=== PATIENT | female | born 1940 | race Caucasian/White ===

== ENCOUNTER 2019-02-19 15:57 | Emergency (ER) | payer MEDICARE ==
[2019-02-19] MEDS ORDERED: MECLIZINE 25 MG TABLET PO ONE (17:43)
--- NOTE | 2019-02-19 17:49 | Emergency Department Record ---
History of Present Illness - General Chief Complaint: Hypertension Stated Complaint: BLOOD PRESSURE HIGH Time Seen by Provider: 02/19/19 17:38 Source: Patient Mode of Arrival: Wheelchair - History of Present Illness Initial Comments: spinning sensation when she sits up or moves her head side to side and no headache and she has had that happened before. Primary Dr is Dr Nuria glynn. moving all four extremities appropriately and she nystagmus when she moves her head right of left and she said it was much worse this morning when she first got up and this has been going on for 3 days PMH CKD Onset/Timin -: Days(s) Timing: Unsure Description: Lightheadedness, "Room spinning" History of Same: Yes (has not lasted this long) History of Trauma: No - Yeni Coma Scale Eye Response: (4) Open spontaneously Motor Response: (6) Obeys commands Verbal Response: (5) Oriented Yeni Total: 15 - Related Data Home Medications Medication Instructions Recorded Confirmed Last Taken Amlodipine Besylate [Norvasc] 10 mg PO DAILY 02/19/19 02/19/19 02/19/19 Ergocalciferol (Vitamin D2) 50,000 units PO WEEKLY 02/19/19 02/19/19 02/19/19 [Vitamin D2] Nebivolol HCl [Bystolic] 20 mg PO DAILY 02/19/19 02/19/19 02/19/19 Previous Rx's Medication Instructions Recorded Meclizine HCl [Antivert] 25 mg PO Q8H #30 tablet 02/19/19 Allergies Allergy/AdvReac Type Severity Reaction Status Date / Time amoxicillin [From Prevpac] Allergy SWELLING Verified 02/19/19 16:45 OF THE TONGUE clarithromycin [From Prevpac] Allergy SWELLING Verified 02/19/19 16:45 OF THE TONGUE doxycycline Allergy SWELLING Verified 02/19/19 16:45 OF THE TONGUE lansoprazole [From Prevpac] Allergy SWELLING Verified 02/19/19 16:45 OF THE TONGUE Sulfa (Sulfonamide Allergy HIVES Verified 02/19/19 16:43 Antibiotics) Travel Screening - Travel/Exposure Within Last 30 Days Have you traveled within the last 30 days?: No - Travel/Exposure Within Last Year Have you traveled outside the [place] in the last year?: No - Additonal Travel Details Have you been exposed to anyone with a communicable illness?: No - Travel Symptoms Symptom Screening: None Review of Systems Reviewed: No additional complaints except as noted below Constitutional: Reports: As per HPI. Denies: Chills, Fever, Malaise, Night sweats, Weakness, Weight change Eyes: Reports: As per HPI. Denies: Eye discharge, Eye pain, Photophobia, Vision change ENT: Reports: As per HPI. Denies: Congestion, Dental pain, Ear pain, Epistaxis, Hearing loss, Throat pain Respiratory: Reports: As per HPI. Denies: Cough, Dyspnea, Hemoptysis, Stridor, Wheezes Cardiovascular: Reports: As per HPI. Denies: Arrhythmia, Chest pain, Dyspnea on exertion, Edema, Murmurs, Orthopnea, Palpitations, Paroxysmal nocturnal dyspnea, Rheumatic Fever, Syncope Endocrine: Reports: As per HPI. Denies: Fatigue, Heat or cold intolerance, Polydipsia, Polyuria Gastrointestinal: Reports: As per HPI. Denies: Abdominal pain, Constipation, Diarrhea, Hematemesis, Hematochezia, Melena, Nausea, Vomiting Genitourinary: Reports: As per HPI. Denies: Abnormal menses, Discharge, Dyspareunia, Dysuria, Frequency, Hematuria, Incontinence, Retention, Urgency Musculoskeletal: Reports: As per HPI. Denies: Arthralgia, Back pain, Gout, Joint swelling, Myalgia, Neck pain Skin: Reports: As per HPI. Denies: Bruising, Change in color, Change in hair/nails, Lesions, Pruritus, Rash Neurological: Reports: As per HPI, Vertigo. Denies: Abnormal gait, Confusion, Headache, Numbness, Paresthesias, Seizure, Tingling, Tremors, Weakness Psychiatric: Reports: As per HPI. Denies: Anxiety, Auditory hallucinations, Depression, Homicidal thoughts, Suicidal thoughts, Visual hallucinations Hematological/Lymphatic: Reports: As per HPI. Denies: Anemia, Blood Clots, Easy bleeding, Easy bruising, Swollen glands Past Medical History - SOCIAL HISTORY Smoking Status: Current every day smoker Alcohol Use: None Drug Use: None - RESPIRATORY Hx Respiratory Disorders: No - CARDIOVASCULAR Hx Cardio Disorders: Yes Hx Hypertension: Yes - NEURO Hx Neuro Disorders: No - GI Hx GI Disorders: No - Hx Genitourinary Disorders: Yes Hx Renal Disease: Yes - ENDOCRINE Hx Endocrine Disorders: No - MUSCULOSKELETAL Hx Musculoskeletal Disorders: No - PSYCH Hx Psych Problems: No - HEMATOLOGY/ONCOLOGY Hx Hematology/Oncology Disorders: No Family Medical History Any Significant Family History?: No Physical Exam - General General Appearance: Alert, Oriented x3, Cooperative, No acute distress - Head Head exam: Normal inspection - Eye Eye exam: Normal appearance, PERRL Pupils: Normal accommodation - ENT ENT exam: Normal exam, Mucous membranes moist, Normal external ear exam, Normal orophraynx, TM's normal bilaterally Ear exam: Normal external inspection. negative: External canal tenderness Nasal Exam: Normal inspection. negative: Discharge, Sinus tenderness Mouth exam: Normal external inspection, Tongue normal Teeth exam: Normal inspection. negative: Dental caries Throat exam: Normal inspection. negative: Tonsillar erythema, Tonsillar exudate - Neck Neck exam: Normal inspection, Full ROM. negative: Tenderness - Respiratory Respiratory exam: Normal lung sounds bilaterally. negative: Respiratory distress - Cardiovascular Cardiovascular Exam: Regular rate, Normal rhythm, Normal heart sounds - GI/Abdominal GI/Abdominal exam: Soft, Normal bowel sounds. negative: Tenderness - Rectal Rectal exam: Deferred - exam: Deferred - Extremities Extremities exam: Normal inspection, Full ROM, Normal capillary refill. negative: Tenderness - Back Back exam: Reports: Normal inspection, Full ROM. Denies: Muscle spasm, Rash noted, Tenderness - Neurological Neurological exam: Alert, Normal gait, Oriented X3, Reflexes normal, Other (nystagmus with motion of head) - Psychiatric Psychiatric exam: Normal affect, Normal mood - Skin Skin exam: Dry, Intact, Normal color, Warm Course Vital Signs 02/19/19 16:47 Temperature 97.8 F Pulse Rate 52 L Respiratory 18 Rate Blood Pressure 208/81 Pulse Ox 97 - Reevaluation(s) Reevaluation #1: patient is feeling better and would like to go home 02/19/19 18:57 Medical Decision Making - Data Complexity MDM Data: X-Ray Ordered and/or Reviewed (CT head negative except chronic changes), EKG Ordered and/or Reviewed (NSR no acute changes) - Lab Data Result diagrams: 02/19/19 18:45 02/19/19 18:10 Disposition Clinical Impression: BPV (benign positional vertigo) Qualifiers: Laterality: unspecified laterality Qualified Code(s): H81.10 - Benign paroxysmal vertigo, unspecified ear Disposition: Home, Self-Care Condition: (1) Good Instructions: Benign Paroxysmal Positional Vertigo (ED) Additional Instructions: follow up with Dr Pérez next week use antivert three times a day Prescriptions: Meclizine HCl [Antivert] 25 mg PO Q8H #30 tablet Forms: Patient Portal Access Time of Disposition: 19:00 Quality - Quality Measures Quality Measures: N/A - Blood Pressure Screening Does Patient Have Any of the Following: No, Active Dx of HTN Blood Pressure Classification: Pre-Hypertensive BP Reading Systolic Measurement: 208 Diastolic Measurement: 81 Screening for High Blood Pressure: Patient Exclusion, Hx of HTN [G9744]
[2019-02-19 18:43] LABS: BLOOD UREA NITROGEN 14 mg/dL (8-23); CREATININE 0.7 mg/dL (0.5-0.9); EST GLOMERULAR FILTRATION RATE > 60 mL/min
[2019-02-19 18:46] LABS: GLUCOSE,RANDOM 95 mg/dL (74-109)
[2019-02-19 18:49] LABS: ABSOLUTE NEUTROPHIL COUNT 5.44; BASO % 0.3 % (0-6); EOS % 1.1 % (0-6); GRAN % 71.6 % (47-80); HEMATOCRIT 44.8 % (35.0-47.0); HEMOGLOBIN 14.5 gm/dl (11.6-16.0); LYMPH % 16.8 % (16-45); MEAN CELL VOLUME 87.3 fl (81-97); MEAN CORPUSCULAR HEMOGLOBIN 28.3 pg (27-33); MEAN CORPUSCULAR HGB CONC 32.4 g/dl (32-36); MONO % 10.2 % (0-9); PLATELET COUNT 185 K/uL (130-400); RED BLOOD COUNT 5.13 M/uL (3.80-5.40); RED CELL DISTRIBUTION WIDTH 14.5 % (11.5-14.5); WHITE BLOOD COUNT W/O DIFF 7.6 K/uL (4.2-12.2)
[2019-02-19 18:59] LABS: URINE APPEARANCE CLEAR; URINE BILIRUBIN NEGATIVE (NEGATIVE); URINE BLOOD NEGATIVE (NEGATIVE); URINE COLOR YELLOW; URINE GLUCOSE (UA) NEGATIVE (NEGATIVE); URINE KETONE NEGATIVE (NEGATIVE); URINE LEUKOCYTE ESTERASE NEGATIVE (NEGATIVE); URINE NITRITE POSITIVE (NEGATIVE); URINE PROTEIN NEGATIVE (NEGATIVE); URINE UROBILINOGEN 0.2 E.U./dL (0.20 - 1.00)
--- NOTE | 2019-02-19 19:00 | CT SCAN REPORT ---
EXAMINATION: CT Head without Contrast EXAM DATE: 02/19/2019 6:39 PM TECHNIQUE: Routine axial CT was acquired from skull base through vertex without contrast. Sagittal an d coronal isotropic reformatted images are reviewed. INDICATION: vertigo. Dizziness for few days, worse today COMPARISON: None. ENCOUNTER: Not applicable HAND DOMINANCE: Unknown. FINDINGS: No intracranial fluid collection or hemorrhage. 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 Underlying mild to moderate fro ntoparietal predominant periventricular patchy deep white matter hypodensity compatible with chronic microvascular ischemia. Chronic left striatocapsular infarct. Enlarged inferior striatal perivascular spaces. Chronic central pontine lacunes versus enlarged perivascular spaces. [id number] genera lized cerebral volume loss. No significant extraneous finding. IMPRESSION: No acute infarct, mass or hemorrhage demonstrated Mild to moderate probable chronic microvascular ischemic white matter change Chronic left striatocapsular infarct Consider correlation with MRI as clinically directed Dictated by: Orlando Montanez MD on 02/19/2019 6:53 PM. .
[2019-02-19 19:06] LABS: URINE BACTERIA 3+; URINE RBC 0 - 2 (NONE SEEN)
[2019-02-19] MEDS ORDERED: CIPROFLOXACIN HCL 500 MG TABLET PO ONE (19:13)
--- NOTE | 2019-02-19 19:15 | Emergency Department Record ---
History of Present Illness - General Chief Complaint: Hypertension Stated Complaint: BLOOD PRESSURE HIGH Time Seen by Provider: 02/19/19 17:38 Source: Patient Mode of Arrival: Wheelchair - History of Present Illness Onset/Timin -: Days(s) Timing: Unsure Description: Lightheadedness, "Room spinning" History of Same: Yes (has not lasted this long) History of Trauma: No - Yeni Coma Scale Eye Response: (4) Open spontaneously Motor Response: (6) Obeys commands Verbal Response: (5) Oriented Hecker Total: 15 - Related Data Home Medications Medication Instructions Recorded Confirmed Last Taken Amlodipine Besylate [Norvasc] 10 mg PO DAILY 02/19/19 02/19/19 02/19/19 Ergocalciferol (Vitamin D2) 50,000 units PO WEEKLY 02/19/19 02/19/19 02/19/19 [Vitamin D2] Nebivolol HCl [Bystolic] 20 mg PO DAILY 02/19/19 02/19/19 02/19/19 Previous Rx's Medication Instructions Recorded Ciprofloxacin HCl [Cipro] 500 mg PO Q12HR #20 tablet 02/19/19 Meclizine HCl [Antivert] 25 mg PO Q8H #30 tablet 02/19/19 Allergies Allergy/AdvReac Type Severity Reaction Status Date / Time amoxicillin [From Prevpac] Allergy SWELLING Verified 02/19/19 16:45 OF THE TONGUE clarithromycin [From Prevpac] Allergy SWELLING Verified 02/19/19 16:45 OF THE TONGUE doxycycline Allergy SWELLING Verified 02/19/19 16:45 OF THE TONGUE lansoprazole [From Prevpac] Allergy SWELLING Verified 02/19/19 16:45 OF THE TONGUE Sulfa (Sulfonamide Allergy HIVES Verified 02/19/19 16:43 Antibiotics) Travel Screening - Travel/Exposure Within Last 30 Days Have you traveled within the last 30 days?: No - Travel/Exposure Within Last Year Have you traveled outside the [place] in the last year?: No - Additonal Travel Details Have you been exposed to anyone with a communicable illness?: No - Travel Symptoms Symptom Screening: None Review of Systems Constitutional: Reports: As per HPI. Denies: Chills, Fever, Malaise, Night sweats, Weakness, Weight change Eyes: Reports: As per HPI. Denies: Eye discharge, Eye pain, Photophobia, Vision change ENT: Reports: As per HPI. Denies: Congestion, Dental pain, Ear pain, Epistaxis, Hearing loss, Throat pain Respiratory: Reports: As per HPI. Denies: Cough, Dyspnea, Hemoptysis, Stridor, Wheezes Cardiovascular: Reports: As per HPI. Denies: Arrhythmia, Chest pain, Dyspnea on exertion, Edema, Murmurs, Orthopnea, Palpitations, Paroxysmal nocturnal dyspnea, Rheumatic Fever, Syncope Endocrine: Reports: As per HPI. Denies: Fatigue, Heat or cold intolerance, Polydipsia, Polyuria Gastrointestinal: Reports: As per HPI. Denies: Abdominal pain, Constipation, Diarrhea, Hematemesis, Hematochezia, Melena, Nausea, Vomiting Genitourinary: Reports: As per HPI. Denies: Abnormal menses, Discharge, Dyspareunia, Dysuria, Frequency, Hematuria, Incontinence, Retention, Urgency Musculoskeletal: Reports: As per HPI. Denies: Arthralgia, Back pain, Gout, Joint swelling, Myalgia, Neck pain Skin: Reports: As per HPI. Denies: Bruising, Change in color, Change in hair/nails, Lesions, Pruritus, Rash Neurological: Reports: As per HPI, Vertigo. Denies: Abnormal gait, Confusion, Headache, Numbness, Paresthesias, Seizure, Tingling, Tremors, Weakness Psychiatric: Reports: As per HPI. Denies: Anxiety, Auditory hallucinations, Depression, Homicidal thoughts, Suicidal thoughts, Visual hallucinations Hematological/Lymphatic: Reports: As per HPI. Denies: Anemia, Blood Clots, Easy bleeding, Easy bruising, Swollen glands Past Medical History - SOCIAL HISTORY Smoking Status: Current every day smoker Alcohol Use: None Drug Use: None - RESPIRATORY Hx Respiratory Disorders: No - CARDIOVASCULAR Hx Cardio Disorders: Yes Hx Hypertension: Yes - NEURO Hx Neuro Disorders: No - GI Hx GI Disorders: No - Hx Genitourinary Disorders: Yes Hx Renal Disease: Yes - ENDOCRINE Hx Endocrine Disorders: No - MUSCULOSKELETAL Hx Musculoskeletal Disorders: No - PSYCH Hx Psych Problems: No - HEMATOLOGY/ONCOLOGY Hx Hematology/Oncology Disorders: No Family Medical History Any Significant Family History?: No Course Vital Signs 02/19/19 02/19/19 02/19/19 16:47 18:49 19:11 Temperature 97.8 F Pulse Rate 52 L Pulse Rate [ 55 L 51 L Pulse Ox Probe] Respiratory 18 18 20 Rate Blood Pressure 208/81 Blood Pressure 210/89 192/139 [Left Arm] Pulse Ox 97 97 95 Medical Decision Making - Lab Data Result diagrams: 02/19/19 18:45 02/19/19 18:10 Lab Results 02/19/19 02/19/19 02/19/19 Range/Units 17:40 18:10 18:10 WBC (4.2-12.2) K/uL RBC (3.80-5.40) M/uL Hgb (11.6-16.0) gm/dl Hct (35.0-47.0) % MCV (81-97) fl MCH (27-33) pg MCHC (32-36) g/dl RDW (11.5-14.5) % Plt Count (130-400) K/uL MPV (7.4-10.4) fl Gran % (47-80) % Lymphocytes % (16-45) % Monocytes % (0-9) % Eosinophils % (0-6) % Basophils % (0-6) % Absolute Neutrophils APTT 25.0 (24.5-39.1) SECONDS Sodium 137 (136-145) mmol/L Potassium 4.3 (3.4-4.5) mmol/L Chloride 103 (98-107) mmol/L Carbon Dioxide 18.0 L (22-29) mmol/L Anion Gap 16.0 (7-16) BUN 14 (8-23) mg/dL Creatinine 0.7 (0.5-0.9) mg/dL Estimated GFR > 60 mL/min Random Glucose 95 (74-109) mg/dL Calcium 8.7 L (8.8-10.2) mg/dL Urine Color Yellow Urine Appearance Clear Urine pH 7.0 (5.0-8.0) Ur Specific [place] 1.015 (1.002-1.030) Urine Protein Negative (NEGATIVE) Urine Glucose (UA) Negative (NEGATIVE) Urine Ketones Negative (NEGATIVE) Urine Blood Negative (NEGATIVE) Urine Nitrite Positive H (NEGATIVE) Urine Bilirubin Negative (NEGATIVE) Urine Urobilinogen 0.2 (0.20 - 1.00) E.U./dL Ur Leukocyte Esterase Negative (NEGATIVE) Urine RBC 0 - 2 (NONE SEEN) Urine WBC 3 - 5 (0-2/hpf) Ur Epithelial Cells 3 - 6 (FEW) Urine Bacteria 3+ // Range/Units 18:45 WBC 7.6 (4.2-12.2) K/uL RBC 5.13 (3.80-5.40) M/uL Hgb 14.5 (11.6-16.0) gm/dl Hct 44.8 (35.0-47.0) % MCV 87.3 (81-97) fl MCH 28.3 (27-33) pg MCHC 32.4 (32-36) g/dl RDW 14.5 (11.5-14.5) % Plt Count 185 (130-400) K/uL MPV 10.0 (7.4-10.4) fl Gran % 71.6 (47-80) % Lymphocytes % 16.8 (16-45) % Monocytes % 10.2 H (0-9) % Eosinophils % 1.1 (0-6) % Basophils % 0.3 (0-6) % Absolute Neutrophils 5.44 APTT (24.5-39.1) SECONDS Sodium (136-145) mmol/L Potassium (3.4-4.5) mmol/L Chloride (98-107) mmol/L Carbon Dioxide (22-29) mmol/L Anion Gap (7-16) BUN (8-23) mg/dL Creatinine (0.5-0.9) mg/dL Estimated GFR mL/min Random Glucose (74-109) mg/dL Calcium (8.8-10.2) mg/dL Urine Color Urine Appearance Urine pH (5.0-8.0) Ur Specific [place] (1.002-1.030) Urine Protein (NEGATIVE) Urine Glucose (UA) (NEGATIVE) Urine Ketones (NEGATIVE) Urine Blood (NEGATIVE) Urine Nitrite (NEGATIVE) Urine Bilirubin (NEGATIVE) Urine Urobilinogen (0.20 - 1.00) E.U./dL Ur Leukocyte Esterase (NEGATIVE) Urine RBC (NONE SEEN) Urine WBC (0-2/hpf) Ur Epithelial Cells (FEW) Urine Bacteria Disposition Clinical Impression: BPV (benign positional vertigo) Qualifiers: Laterality: unspecified laterality Qualified Code(s): H81.10 - Benign paroxysmal vertigo, unspecified ear Disposition: Home, Self-Care Condition: (1) Good Instructions: Benign Paroxysmal Positional Vertigo (ED) Additional Instructions: follow up with Dr Pérez next week use antivert three times a day Prescriptions: Ciprofloxacin HCl [Cipro] 500 mg PO Q12HR #20 tablet Meclizine HCl [Antivert] 25 mg PO Q8H #30 tablet Forms: Patient Portal Access Quality - Quality Measures Quality Measures: N/A - Blood Pressure Screening Does Patient Have Any of the Following: No, Active Dx of HTN Blood Pressure Classification: Pre-Hypertensive BP Reading Systolic Measurement: 208 Diastolic Measurement: 81 Screening for High Blood Pressure: Patient Exclusion, Hx of HTN [G9744]
== END 2019-02-19 19:36 | disposition home or self-care (01) ==
LOC: ER 15:57
DX: H81.10 Benign paroxysmal vertigo, unspecified ear (principal); I10 Essential (primary) hypertension; F17.210 Nicotine dependence, cigarettes, uncomplicated
CPT/HCPCS: 70450; 80048; 81001; 85025; 85730; 93005; 93010; 99284